=== PATIENT | female | born 1965 | race Caucasian/White ===

== ENCOUNTER 2021-12-10 19:28 | Emergency (ER) | payer MEDICARE ==
[2021-12-10] MEDS ORDERED: DUONEB 0.5-3 MG/3 ml Neb IH ONE ×2 (19:36→19:55)
[2021-12-10] MEDS ORDERED: Sodium Chloride 0.9% 1000 ML 1,000 ML ONE ×3 (19:38→22:53)
[2021-12-10] MEDS ORDERED: Sodium Chloride 0.9% 1000 ML 1,000 ML IV STA (19:42)
[2021-12-10] MEDS ORDERED: PROTONIX 40 MG IV IV ONE ×3 (19:42→20:32)
[2021-12-10] MEDS ORDERED: POTASSIUM CHLORIDE 20 mEq IN WATER 100ML 20 MEQ/100 ML BAG IV SCH (19:45)
[2021-12-10] MEDS ORDERED: PIPERACILLIN/TAZOBACTAM 3.375 GM in Sodium Chloride 100ML MINI-BAG PLUS 100 ML IV ONE (19:48)
[2021-12-10] MEDS ORDERED: Magnesium 1 Gm / 100 Ml D5W*** 100 ML IV ONE ×4 (19:49→21:26)
[2021-12-10] MEDS ORDERED: POTASSIUM CHLORIDE 20 mEq IN WATER 100ML 200 ML IV ONE (19:53)
[2021-12-10] MEDS ORDERED: Sodium Chloride 100ML MINI-BAG PLUS 100 ML IV ONE (19:53)
[2021-12-10] MEDS ORDERED: PIPERACILLIN/TAZOBACTAM IV ONE (19:53)
[2021-12-10] MEDS ORDERED: PROTONIX 40 MG IV*** 80 MG in Sodium Chloride 0.9% 500 ML 500 ML IV SCH (20:00)
[2021-12-10 20:02] LABS: A-aADO2 609; ABG HEMOGLOBIN 16.5; ABG POTASSIUM 2.1 (3.5-5.1); ABG SITE RIGHT BRACHIAL; ARTERIAL BLD GAS O2 SATURATION 90.2 % (95-100); ARTERIAL BLOOD GAS BASE EXCESS -3.5 (-2.0-2.0); ARTERIAL BLOOD GAS FIO2 100 %; ARTERIAL BLOOD GAS PCO2 38 mmHg (35-45); ARTERIAL BLOOD GAS PO2 57 mmHg (75-100); ARTERIAL BLOOD GAS pH 7.36 (7.35-7.45); CARBOXYHEMOGLOBIN 2.3 % THgb (0.0-6.9); HCO3- 21.5 (22-28); HGB O2 SAT 87.2 g/dF (94-100); Methhemoglobin 1.1 % (1.4-1.5)
[2021-12-10 20:03] LABS: ALLEN TEST OK? YES
[2021-12-10 20:07] LABS: Hemoglobin 15.6 g/dL (12.0-16.0); Mean Cell Volume 90.9 fL (78-100); Mean Corpuscular Hemoglobin 28.9 pg (26-32); Mean Corpuscular Hgb Concent. 31.8 g/dL (32-36); Mean Platelet Volume 11.3 fL (7.5-11.0); Platelet Count 236 x10^3/uL (150-450); Red Blood Count 5.39 x10^6/uL (4.1-5.4); Red Cell Distribution Width 13.9 % (11.5-14.0); White Blood Count 24.9 x10^3/uL (4.0-10.5)
--- NOTE | 2021-12-10 20:20 | ERPHSYRPT ---
- History of Present Illness Time Seen by Provider: 12/10/21 19:42 Source: patient, EMS Exam Limitations: clinical condition Patient Subjective Stated Complaint: per ems, pt was unresponsive in bed. o2 upon arrival of rescue was 77 and pt color was dusky. o2 applied and color improved. ems had difficulty getting accurate pulse ox on fingers. pt had coffee ground emesis upon palpation of abd with ems, c/o rt side abd pain and tenderness. last known normal 1000 today. Triage Nursing Assessment: pt wakes to voice. answers some questions. some co nfusion noted. respirations nonlabored, shallow. o2 on per nrb 100%. skin cool, dry, pale. heart rate 108 sinus tach on monitor. Physician History: 56 years old female with history of pulmonary embolism on Eliquis/green filter placement, tobacco abuse, morbid obesity presented in the ER by EMS with chief complaint of altered mental status. As per report patient was found unresponsive at home and on EMS arrival oxygen saturation was in 70s, was placed on nonrebreather and her saturation improved and she is more responsive to verbal stimuli but still sleepy. Patient is complaining of left-sided abdominal pain and had coffee-ground emesis witnessed by EMS prior to arrival. She denies any chest pain but does have some tightness. Denies any fall or trauma. Moving all 4 extremities. Not a good historian and history is limited Timing/Duration: today Severity: moderate, severe Associated Symptoms: nausea, vomiting, abdominal pain, shortness of breath, weakness Allergies/Adverse Reactions: clarithromycin [From Biaxin] Allergy (Intermediate, Verified 12/10/21 20:26) Sulfa (Sulfonamide Antibiotics) Allergy (Intermediate, Verified 12/10/21 20:26) acetaminophen [From Esgic] Allergy (Mild, Verified 12/10/21 21:31) butalbital [From Esgic] Allergy (Mild, Verified 12/10/21 21:31) caffeine [From Esgic] Allergy (Mild, Verified 12/10/21 21:31) ofloxacin [From Floxin] Allergy (Unknown, Verified 12/10/21 21:30) Immunizations Up to Date: ([place]) Travel Risk - International Travel Have you traveled outside of the country in past 3 weeks: No - Coronavirus Screening Are you exhibiting any of the following symptoms?: No - Vaccine Status Have you recieved a Covid-19 vaccination: No Furniture Builder: Unknown - Vaccination Dates Dates if Unknown: [place] - Review of Systems All Other Systems: Unable due to condition - Past Medical History Cardiac History: Coronary Artery Disease, Myocardial Infarction ([place]) Respiratory History: COPD, Pulmonary Embolism - Past Surgical History Other Surgical History: unknown - Social History Smoking Status: Current every day smoker How long have you smoked: yrs Patient Lives Alone: No - Nursing Vital Signs Nursing Vital Signs: Initial Vital Signs Temperature 98.0 F 12/10/21 19:34 Pulse Rate 107 H 12/10/21 19:34 Respiratory Rate 24 12/10/21 19:34 Blood Pressure 92/65 12/10/21 19:34 O2 Sat by Pulse Oximetry 84 L 12/10/21 19:34 Pain Scale Pain Intensity 5 - Physical Exam General Appearance: moderate distress Eye Exam: PERRL/EOMI Ears, Nose, Throat Exam: normal ENT inspection, TMs normal Neck Exam: normal inspection, non-tender, supple, full range of motion Respiratory Exam: diminished breath sounds, accessory muscle use, crackles/rales Cardiovascular Exam: normal heart sounds, tachycardia Gastrointestinal/Abdomen Exam: soft, normal bowel sounds, tenderness (left lower quadrant) Extremity Exam: normal inspection, normal range of motion Neurologic Exam: alert, oriented x 3, cooperative, mandolin repairer II-XII nml as tested, sensation nml, No motor deficits Skin Exam: normal color SpO2 Interpretation: hypoxic, O2 applied SpO2: 83 O2 Delivery: Non-rebreather Procedures - Central Line Time Of Procedure: 20:21 Timeout: Performed Central Line Lumen: triple Lumen Size: 7 [place] Central Line Procedure: chlorahexadine prep Central Line Postion: internal jugular (R) Anesthesia: 1% Lidocaine cc's of anesthesia: 3 Ultrasound Guided Placement: Yes Complications: none Central Line Post Position: sutured, good blood return, position confirmed w/ CXR - Course EKG Interpreted by Me: RATE (106), Sinus Tach, NORMAL AXIS, Other (PVCs, lateral ST depression, prolonged QT interval) Rhythm Strip: Rate (Second EKG time 2229. Rate 90, rhythm sinus. APC, prolonged QT interval. Nonspecific ST changes.) Ordered Tests: Active Orders 24 hr Category Date Time Status EKG-ER Only STAT Care 12/10/21 19:42 Active IV Insertion STAT Care 12/10/21 19:42 Active NPO (ED) STAT Care 12/10/21 19:42 Active Telemetry q4h Care 12/10/21 19:43 Active ABDOMEN AND PELVIS W/0 CONTRAS [CT] Stat Exams 12/10/21 19:42 Taken CHEST 1 VIEW (PORTABLE) Stat Exams 12/10/21 20:24 Taken CHEST WITHOUT CONTRAST [CT] Stat Exams 12/10/21 19:44 Taken HEAD WITHOUT CONTRAST [CT] Stat Exams 12/10/21 21:15 Taken ABG [ARTERIAL BLOOD GASES] Stat Lab 12/10/21 19:30 Completed AMYLASE Stat Lab 12/10/21 20:02 Completed BLOOD CULTURE Stat Lab 12/10/21 22:58 Received BNP [NT PRO BNP] Stat Lab 12/10/21 20:04 Completed CBC W DIFF Stat Lab 12/10/21 20:02 Completed CMP Stat Lab 12/10/21 20:02 Completed LIPASE Stat Lab 12/10/21 20:02 Completed Lactic Acid Stat Lab 12/10/21 19:30 Completed Lactic Acid Stat Lab 12/10/21 22:04 Received MAG [MAGNESIUM] Stat Lab 12/10/21 20:04 Completed Manual Differential NC Stat Lab 12/10/21 20:02 Completed PROCALCITONIN Stat Lab 12/10/21 20:02 Completed TROPONIN Q4H Lab 12/10/21 20:02 Completed TROPONIN Q4H Lab 12/10/21 23:45 Ordered TROPONIN Q4H Lab 12/11/21 03:45 Ordered UA W/RFX CULTURE Stat Lab 12/10/21 20:46 Completed Urine Triage Profile Stat Lab 12/10/21 20:44 Completed Respiratory Therapy Assessment DAILY RT 12/10/21 19:56 Active Medication Summary Generic Name Dose Route Start Last Admin Trade Name Freq PRN Reason Stop Dose Admin Potassium Chloride 20 meq in 100 mls @ 50 mls/hr 12/10/21 19:45 12/10/21 20:26 Potassium Chloride 20 Meq In Water 100ml IV 12/10/21 23:44 50 mls/hr Q2H ITZ Administration Pantoprazole Sodium 80 mg/ 500 mls @ 50 mls/hr 12/10/21 20:00 12/10/21 20:33 Sodium Chloride IV 01/09/22 19:59 50 mls/hr .Q10H ITZ 50 mls/hr Administration Discontinued Medications Generic Name Dose Route Start Last Admin Trade Name Freq PRN Reason Stop Dose Admin Albuterol/Ipratropium Confirm 12/10/21 19:36 Ipratropium/Albuterol Sulfate 3 Ml Ampul.Neb Administered 12/10/21 19:37 Dose 3 ml IH .STK-MED ONE Albuterol/Ipratropium 3 ml 12/10/21 19:55 12/10/21 19:57 Ipratropium/Albuterol Sulfate 3 Ml Ampul.Neb IH 12/10/21 19:56 3 ml STAT ONE Administration Methylprednisolone Sodium 0 mg 12/10/21 20:35 12/10/21 20:38 Succinate 125 mg/ Sterile IV 12/10/21 20:36 125 mg Water 2 ml STAT ONE Administration Sodium Chloride Confirm 12/10/21 19:38 Sodium Chloride 0.9% 1000 Ml Administered 12/10/21 19:39 Dose 1,000 mls @ ud .ROUTE .STK-MED ONE Sodium Chloride 1,000 mls @ 999 mls/hr 12/10/21 19:42 12/10/21 21:38 Sodium Chloride 0.9% 1000 Ml IV 12/10/21 20:42 Infused .Q1H1M STA Infusion Piperacillin Sod/Tazobactam 100 mls @ 200 mls/hr 12/10/21 19:48 12/10/21 20: 26 Sod 3.375 gm/ Sodium Chloride IV 12/10/21 20:17 200 mls/hr STAT ONE Administration Magnesium Sulfate/Dextrose 100 mls @ 200 mls/hr 12/10/21 19:49 12/10/21 20:27 Magnesium 1 Gm / 100 Ml D5w IV 12/10/21 20:18 200 mls/hr STAT ONE Administration Sodium Chloride Confirm 12/10/21 19:53 Sodium Chloride 100ml Mini-Bag Plus Administered 12/10/21 19:54 Dose 100 mls @ ud IV .STK-MED ONE Magnesium Sulfate/Dextrose Confirm 12/10/21 19:53 Magnesium 1 Gm / 100 Ml D5w Administered 12/10/21 19:54 Dose 100 mls @ ud IV .STK-MED ONE Sodium Chloride Confirm 12/10/21 19:53 Sodium Chloride 0.9% 1000 Ml Administered 12/10/21 19:54 Dose 1,000 mls @ ud .ROUTE .STK-MED ONE Levofloxacin/Dextrose 500 mg in 100 mls @ 100 mls/hr 12/10/21 20:34 12/10/21 21:41 Levofloxacin 500mg/100ml D5w IV 12/10/21 21:33 Not Given STAT STA Sodium Chloride Confirm 12/10/21 20:32 Sodium Chloride 0.9% 500 Ml Administered 12/10/21 20:33 Dose 500 mls @ ud IV .STK-MED ONE Magnesium Sulfate/Dextrose 100 mls @ 200 mls/hr 12/10/21 20:55 12/10/21 21:27 Magnesium 1 Gm / 100 Ml D5w IV 12/10/21 21:24 200 mls/hr STAT ONE Administration Magnesium Sulfate/Dextrose Confirm 12/10/21 21:26 Magnesium 1 Gm / 100 Ml D5w Administered 12/10/21 21:27 Dose 100 mls @ ud IV .STK-MED ONE Vancomycin HCl 1 gm in 200 mls @ 125 mls/hr 12/10/21 21:33 12/10/21 21:44 Vancomycin 1 Gram/200 Ml Bag IV 12/10/21 23:08 125 ml/hr STAT ONE 125 mls/hr Administration Vancomycin HCl Confirm 12/10/21 21:43 Vancomycin 1 Gram/200 Ml Bag Administered 12/10/21 21:44 Dose 1 gm in 200 mls @ ud IV .STK-MED ONE Sodium Chloride Confirm 12/10/21 22:53 Sodium Chloride 0.9% 1000 Ml Administered 12/10/21 22:54 Dose 1,000 mls @ ud .ROUTE .STK-MED ONE Methylprednisolone Sodium Succinate Confirm 12/10/21 20:30 Methylprednis Sod Succ 125 Mg/2 Ml Vial Administered 12/10/21 20:31 Dose 125 mg .ROUTE .STK-MED ONE Pantoprazole Sodium 40 mg 12/10/21 19:42 12/10/21 20:27 Pantoprazole 40 Mg Vial IV 12/10/21 19:43 40 mg STAT ONE Administration Pantoprazole Sodium Confirm 12/10/21 19:53 Pantoprazole 40 Mg Vial Administered 12/10/21 19:54 Dose 40 mg IV .STK-MED ONE Pantoprazole Sodium Confirm 12/10/21 20:32 Pantoprazole 40 Mg Vial Administered 12/10/21 20:33 Dose 80 mg IV .STK-MED ONE Piperacillin Sod/Tazobactam Sod Confirm 12/10/21 19:53 Piperacillin/Tazobactam Sodium 3.375 Gm Vial Administered 12/10/21 19:54 Dose 3.375 gm IV .STK-MED ONE Sterile Water Confirm 12/10/21 20:30 Water For Injection,Sterile 10 Ml Vial Administered 12/10/21 20:31 Dose 10 ml IJ .STK-MED ONE Lab/Rad Data: Laboratory Result Diagrams 12/10/21 20:02 12/10/21 20:02 Laboratory Results 12/10/21 12/10/21 12/10/21 Range/Units 20:46 20:44 20:04 WBC (4.0-10.5) x10^3/uL RBC (4.1-5.4) x10^6/uL Hgb (12.0-16.0) g/dL Hct (35-47) % MCV (78-100) fL MCH (26-32) pg MCHC (32-36) g/dL RDW (11.5-14.0) % Plt Count (150-450) x10^3/uL MPV (7.5-11.0) fL Segmented Neutrophils (36.0-66.0) % Band Neutrophils (0.0-2.0) % Lymphocytes (Manual) (24-44) % Monocytes (Manual) (0.0-12.0) % Platelet Estimate (NORMAL) RBC Morphology Puncture Site pCO2 (35-45) mmHg pO2 (75-100) mmHg Base Excess (-2.0-2.0) O2 Saturation (94-100) g/dF ABG pH (7.35-7.45) ABG HCO3 (22-28) ABG O2 Sat (Measured) (95-100) % [place] Test A-a Gradient a/A Ratio Hemoglobin Carboxyhemoglobin (0.0-6.9) % THgb Methemoglobin (1.4-1.5) % Potassium (3.5-5.1) Temperature C POC O2 Flow Rate % Sodium (137-145) mmol/L Chloride (98-107) mmol/L Carbon Dioxide (22-30) mmol/L Anion Gap (5-15) MEQ/L BUN (7-17) mg/dL Creatinine (0.52-1.04) mg/dL Estimated GFR ML/MIN Glucose (74-106) mg/dL Lactic Acid (0.4-2.0) Calcium (8.4-10.2) mg/dL Magnesium 1.0 L* (1.6-2.3) mg/dL Total Bilirubin (0.2-1.3) mg/dL AST (14-36) U/L ALT (0-35) U/L Alkaline Phosphatase (38-126) U/L Troponin I (0.000-0.034) ng/mL NT-Pro-B Natriuret Pep 6790 H (0-900) pg/mL Serum Total Protein (6.3-8.2) g/dL Albumin (3.5-5.0) g/dL Amylase (30-110) U/L Lipase (23-300) U/L Procalcitonin (0.030-0.080) ng/mL Urinalys Dipstick Clnc MAIN LAB Urine Color YELLOW (YELLOW) Urine Appearance CLEAR (CLEAR) Urine pH 6.5 (5-6) Ur Specific [place] 1.020 (1.005-1.025) POC Urine Protein Conf NEGATIVE (Negative) Urine Ketones NEGATIVE (NEGATIVE) Urine Nitrite NEGATIVE (NEGATIVE) Urine Bilirubin NEGATIVE (NEGATIVE) Urine Urobilinogen 0.2 (0-1) mg/dL Urine Leukocytes NEGATIVE (NEGATIVE) Urine WBC (Auto) 0-2 (0-5) /HPF Urine RBC (Auto) 0-2 (0-2) /HPF U Epithel Cells (Auto) RARE (FEW) /HPF Urine Bacteria (Auto) NONE SEEN (NEGATIVE) /HPF Urine RBC NEGATIVE (0-5) Carlos/ul Ur Culture Indicated? NO Urine Glucose 250 A (NEGATIVE) mg/dL Urine Opiates Level NEGATIVE (NEGATIVE) Ur Methadone NEGATIVE (NEGATIVE) Urine Barbiturates NEGATIVE (NEGATIVE) Ur Phencyclidine (PCP) NEGATIVE (NEGATIVE) Urine Amphetamine NEGATIVE (NEGATIVE) U Benzodiazepine Level POSITIVE (NEGATIVE) Urine Cocaine NEGATIVE (NEGATIVE) Urine Marijuana (THC) NEGATIVE (NEGATIVE) 12/10/21 12/10/21 12/10/21 Range/Units 20:02 20:02 20:02 WBC (4.0-10.5) x10^3/uL RBC (4.1-5.4) x10^6/uL Hgb (12.0-16.0) g/dL Hct (35-47) % MCV (78-100) fL MCH (26-32) pg MCHC (32-36) g/dL RDW (11.5-14.0) % Plt Count (150-450) x10^3/uL MPV (7.5-11.0) fL Segmented Neutrophils (36.0-66.0) % Band Neutrophils (0.0-2.0) % Lymphocytes (Manual) (24-44) % Monocytes (Manual) (0.0-12.0) % Platelet Estimate (NORMAL) RBC Morphology Puncture Site pCO2 (35-45) mmHg pO2 (75-100) mmHg Base Excess (-2.0-2.0) O2 Saturation (94-100) g/dF ABG pH (7.35-7.45) ABG HCO3 (22-28) ABG O2 Sat (Measured) (95-100) % [place] Test A-a Gradient a/A Ratio Hemoglobin Carboxyhemoglobin (0.0-6.9) % THgb Methemoglobin (1.4-1.5) % Potassium 2.1 L* (3.5-5.1) Temperature C POC O2 Flow Rate % Sodium 138 (137-145) mmol/L Chloride 101 (98-107) mmol/L Carbon Dioxide 20 L (22-30) mmol/L Anion Gap 19.1 H (5-15) MEQ/L BUN 15 (7-17) mg/dL Creatinine 2.11 H (0.52-1.04) mg/dL Estimated GFR 25.9 ML/MIN Glucose 119 H (74-106) mg/dL Lactic Acid (0.4-2.0) Calcium 9.3 (8.4-10.2) mg/dL Magnesium (1.6-2.3) mg/dL Total Bilirubin 0.80 (0.2-1.3) mg/dL AST 49 H (14-36) U/L ALT 33 (0-35) U/L Alkaline Phosphatase 84 (38-126) U/L Troponin I 1.860 H* (0.000-0.034) ng/mL NT-Pro-B Natriuret Pep (0-900) pg/mL Serum Total Protein 6.2 L (6.3-8.2) g/dL Albumin 3.7 (3.5-5.0) g/dL Amylase 54 (30-110) U/L Lipase 42 (23-300) U/L Procalcitonin 50.900 H* (0.030-0.080) ng/mL Urinalys Dipstick Clnc Urine Color (YELLOW) Urine Appearance (CLEAR) Urine pH (5-6) Ur Specific [place] (1.005-1.025) POC Urine Protein Conf (Negative) Urine Ketones (NEGATIVE) Urine Nitrite (NEGATIVE) Urine Bilirubin (NEGATIVE) Urine Urobilinogen (0-1) mg/dL Urine Leukocytes (NEGATIVE) Urine WBC (Auto) (0-5) /HPF Urine RBC (Auto) (0-2) /HPF U Epithel Cells (Auto) (FEW) /HPF Urine Bacteria (Auto) (NEGATIVE) /HPF Urine RBC (0-5) Carlos/ul Ur Culture Indicated? Urine Glucose (NEGATIVE) mg/dL Urine Opiates Level (NEGATIVE) Ur Methadone (NEGATIVE) Urine Barbiturates (NEGATIVE) Ur Phencyclidine (PCP) (NEGATIVE) Urine Amphetamine (NEGATIVE) U Benzodiazepine Level (NEGATIVE) Urine Cocaine (NEGATIVE) Urine Marijuana (THC) (NEGATIVE) 12/10/21 12/10/21 12/10/21 Range/Units 20:02 19:30 19:30 WBC 24.9 H (4.0-10.5) x10^3/uL RBC 5.39 (4.1-5.4) x10^6/uL Hgb 15.6 (12.0-16.0) g/dL Hct 49.0 H (35-47) % MCV 90.9 (78-100) fL MCH 28.9 (26-32) pg MCHC 31.8 L (32-36) g/dL RDW 13.9 (11.5-14.0) % Plt Count 236 (150-450) x10^3/uL MPV 11.3 H (7.5-11.0) fL Segmented Neutrophils 56 (36.0-66.0) % Band Neutrophils 22 H (0.0-2.0) % Lymphocytes (Manual) 10 L (24-44) % Monocytes (Manual) 12 (0.0-12.0) % Platelet Estimate NORMAL (NORMAL) RBC Morphology NORMAL Puncture Site RIGHT BRACHIAL pCO2 38 (35-45) mmHg pO2 57 L (75-100) mmHg Base Excess -3.5 L (-2.0-2.0) O2 Saturation 87.2 L (94-100) g/dF ABG pH 7.36 (7.35-7.45) ABG HCO3 21.5 L (22-28) ABG O2 Sat (Measured) 90.2 L (95-100) % Kentrell Test YES A-a Gradient 609 a/A Ratio 0.09 Hemoglobin 16.5 Carboxyhemoglobin 2.3 (0.0-6.9) % THgb Methemoglobin 1.1 L (1.4-1.5) % Potassium 2.1 L* (3.5-5.1) Temperature 37.0 C POC O2 Flow Rate 100 % Sodium (137-145) mmol/L Chloride (98-107) mmol/L Carbon Dioxide (22-30) mmol/L Anion Gap (5-15) MEQ/L BUN (7-17) mg/dL Creatinine (0.52-1.04) mg/dL Estimated GFR ML/MIN Glucose (74-106) mg/dL Lactic Acid 6.8 H (0.4-2.0) Calcium (8.4-10.2) mg/dL Magnesium (1.6-2.3) mg/dL Total Bilirubin (0.2-1.3) mg/dL AST (14-36) U/L ALT (0-35) U/L Alkaline Phosphatase (38-126) U/L Troponin I (0.000-0.034) ng/mL NT-Pro-B Natriuret Pep (0-900) pg/mL Serum Total Protein (6.3-8.2) g/dL Albumin (3.5-5.0) g/dL Amylase (30-110) U/L Lipase (23-300) U/L Procalcitonin (0.030-0.080) ng/mL Urinalys Dipstick Clnc Urine Color (YELLOW) Urine Appearance (CLEAR) Urine pH (5-6) Ur Specific [place] (1.005-1.025) POC Urine Protein Conf (Negative) Urine Ketones (NEGATIVE) Urine Nitrite (NEGATIVE) Urine Bilirubin (NEGATIVE) Urine Urobilinogen (0-1) mg/dL Urine Leukocytes (NEGATIVE) Urine WBC (Auto) (0-5) /HPF Urine RBC (Auto) (0-2) /HPF U Epithel Cells (Auto) (FEW) /HPF Urine Bacteria (Auto) (NEGATIVE) /HPF Urine RBC (0-5) Carlos/ul Ur Culture Indicated? Urine Glucose (NEGATIVE) mg/dL Urine Opiates Level (NEGATIVE) Ur Methadone (NEGATIVE) Urine Barbiturates (NEGATIVE) Ur Phencyclidine (PCP) (NEGATIVE) Urine Amphetamine (NEGATIVE) U Benzodiazepine Level (NEGATIVE) Urine Cocaine (NEGATIVE) Urine Marijuana (THC) (NEGATIVE) - Progress Progress: improved Progress Note: 12/10/21 22:43 56-year-old is evaluated for lethargy/unresponsiveness, hypoxic, placed on nonrebreather. Given breathing treatment and is short of steroid, patient is sleepy but arousable to verbal commands and moving all 4 extremities. Chest x- ray showed bilateral pneumonia and given broad-spectrum antibiotics Zosyn and vancomycin. Patient was hypotensive and getting fluid per sepsis protocol and currently blood pressure in upper 90s. Patient has a white count of 25, lactate of 6.8 with procalcitonin of 50 and acute renal failure with a creatinine of 2.1. EKG did not show any acute ST elevation but has a troponin of 1.8 and patient denies any chest pain. Patient has a potassium of 2.1 and magnesium of 1.12. Started on replacement of potassium and magnesium. Patient is taken off of nonrebreather and placed on 6 L which she did not tolerate very well and currently on Venturi mask 12 L. I have obtained CT head which is negative. CT chest showed bilateral consolidation/pneumonia and CT abdomen pelvis showed some gastric distention with some element of constipation but no other definite obstruction. Patient had a coffee-ground emesis and given Protonix and started on Protonix drip. Discussed with Dr. Serrano at [facility], reviewed history, work-up and patient is excepted for transfer. Discussed with Dr.: Other (Dr. Serrano [facility]) Counseled pt/family regarding: lab results, diagnosis, rad results, smoking cessation - Departure Departure Disposition: Transfer Clinical Impression: Bilateral pneumonia, Sepsis, Acute renal failure, GI bleed, Elevated troponin, Hypomagnesemia, Hypokalemia Respiratory failure Qualifiers: Chronicity: acute Respiratory failure complication: hypoxia Qualified Code(s): J96.01 - Acute respiratory failure with hypoxia Condition: Critical Critical Care Time: Yes Critical Care Time(excluding separately billable procedures): Critical 75-104 mins Referrals: ARMAND CORTEZ [Primary Care Provider] - Follow up/PCP as directed
[2021-12-10 20:22] LABS: ALBUMIN 3.7 g/dL (3.5-5.0); ANION GAP 19.1 MEQ/L (5-15); BILIRUBIN,TOTAL 0.8 mg/dL (0.2-1.3); Calcium 9.3 mg/dL (8.4-10.2); Creatinine 1 2.11 mg/dL (0.52-1.04); EST GLOMERULAR FILTRATION RATE 25.9 ML/MIN; Total Protein 6.2 g/dL (6.3-8.2)
[2021-12-10] MEDS ORDERED: Sterile H2O 10 ml IJ ONE (20:30)
[2021-12-10] MEDS ORDERED: solu-MEDROL ONE (20:30)
[2021-12-10] MEDS ORDERED: Sodium Chloride 0.9% 500 ML 500 ML IV ONE (20:32)
[2021-12-10 20:33] LABS: Potassium 2.1 mmol/L (3.5-5.1)
[2021-12-10] MEDS ORDERED: Levofloxacin 500MG/100ML D5W 500 MG/100 ML BAG IV STA (20:34)
[2021-12-10] MEDS ORDERED: solu-MEDROL 125 MG, Sterile H2O 10 ml 2 ML IV ONE ×2 (20:35)
[2021-12-10 20:55] LABS: BAND 22 % (0.0-2.0); Lymphocytes 10 % (24-44); Monocyte 12 % (0.0-12.0); Total Cells Counted 100
[2021-12-10 20:56] LABS: Platelet Estimate NORMAL (NORMAL)
[2021-12-10 21:07] LABS: Appearance CLEAR (CLEAR); Bilirubin NEGATIVE (NEGATIVE); Dipstick done @ ? MAIN LAB; Glucose 250 mg/dL (NEGATIVE); Ketones NEGATIVE (NEGATIVE); Nitrite NEGATIVE (NEGATIVE); Ph 6.5 (5-6); Protein,Urine Dip NEGATIVE (Negative); RBC NEGATIVE Ery/ul (0-5); Urobilinogen 0.2 mg/dL (0-1)
[2021-12-10 21:19] LABS: Bacteria NONE SEEN /HPF (NEGATIVE); Epithelial Cells RARE /HPF (FEW); RBC 0-2 /HPF (0-2); WBC 0-2 /HPF (0-5)
[2021-12-10 21:20] LABS: Urine Cultured Indicated? NO
[2021-12-10 21:23] LABS: Amphetamine,Urine NEGATIVE (NEGATIVE); Barbiturate,Urine NEGATIVE (NEGATIVE); Benzodiazepine,Urine POSITIVE (NEGATIVE); Cocaine,Urine NEGATIVE (NEGATIVE); Methadone,Urine NEGATIVE (NEGATIVE); Opiate,Urine NEGATIVE (NEGATIVE); PCP,Urine NEGATIVE (NEGATIVE); THC,Urine NEGATIVE (NEGATIVE)
[2021-12-10] MEDS ORDERED: VANCOMYCIN 1 GRAM/200 ML BAG 1 GM/200 ML PIGGYBACK IV ONE ×2 (21:33→21:43)
[2021-12-10 22:51] VITALS: PULSE 92
[2021-12-10 23:09] VITALS: BP 109/44
[2021-12-10 23:11] VITALS: O2SAT 83
--- NOTE | 2021-12-11 14:44 | XRAY ---
Indication: Unresponsive. Headache, left abdomen pain, and constipation. Multiple contiguous axial images obtained through the abdomen and pelvis without contrast. Comparison: March 13, 2009 CT chest reported separately. Stomach is now moderately fluid distended either from recent ingestion versus gastroparesis versus outlet obstruction. Noncontrasted bowel loops appear nonobstructed. There is now moderate diffuse scattered colonic fecal debris including rectum. Dense radiopacities in the left hemicolon and sigmoid may represent ingested medication/bismuth versus barium. Urinary bladder is empty with a Stovall balloon catheter. Again diffuse fatty liver and diffuse fatty replaced pancreas. New 1.3 cm right lower and 1.4 cm left mid renal cysts. Appendectomy, cholecystomy, and hysterectomy reported. No free fluid/air. Remaining liver, gallbladder, pancreas, spleen, adrenal glands, kidneys, and ureters are unremarkable for noncontrast exam. Worsening mild/moderate scattered aortoiliac calcifications without AAA. Stable femoral-femoral bypass graft and IVC filter. Osseous structures intact with minimal/mild degenerative changes throughout the thoracolumbar spine. No ventral or inguinal hernias. Impression: 1. New fluid distended stomach either from recent ingestion, gastroparesis, or outlet obstruction. 2. New moderate diffuse fecal stasis. 3. New bilateral renal cysts. 4. Again fatty liver, fatty replaced pancreas, arteriosclerotic disease, and chronic bony findings.
--- NOTE | 2021-12-11 14:45 | XRAY ---
Indication: Unresponsive. Headache, left abdomen pain, and constipation. Multiple contiguous axial images obtained through the head without contrast. Comparison: December 29, 2006 Normal appearing brain parenchyma, ventricles, and bony calvarium. Visualized paranasal sinuses and mastoid air cells are clear. Impression: Continued normal CT head without contrast exam.
--- NOTE | 2021-12-11 14:45 | XRAY ---
Indication: Unresponsive. Headache, left abdomen pain, and constipation. Multiple contiguous axial images obtained through the chest without contrast. Comparison: July 09, 2006 Lungs demonstrate new diffuse right lung and left lower lobe consolidating airspace disease. Greatest extent in both posterior lower lobes concerning for aspiration. Interval peripheral left upper lobe postsurgical changes. No pneumothorax. Heart not enlarged with new right central venous access catheter. Aorta is mildly arteriosclerotic without aneurysm. Mild fluid distended mid esophagus favoring GERD. Bony thorax intact with minimal degenerative changes throughout the spine. CT abdomen/pelvis report septally. Impression: New diffuse right lung and left lower lobe consolidating airspace disease. Rule out aspiration. Incidental mild fluid distended esophagus favors GERD.
--- NOTE | 2021-12-11 14:45 | XRAY ---
Indication: Central line placement. Comparison: March 13, 2009 Portable chest again demonstrates right internal jugular central venous access catheter with tip projecting over atriocaval junction. No pneumothorax. Lungs less inflated with new diffuse bilateral infiltrates versus atelectasis without consolidation/large effusion. Stable left midlung postsurgical changes. Heart is not enlarged. Bony thorax intact again with mild osteopenia and degenerative changes.
== END 2021-12-10 23:15 | disposition short-term general hospital (02) ==
LOC: MERGE 19:28 → ED 19:28
DX: A41.9 Sepsis, unspecified organism (principal); J18.9 Pneumonia, unspecified organism; R65.20 Severe sepsis without septic shock; N17.9 Acute kidney failure, unspecified; J96.01 Acute respiratory failure with hypoxia; Z72.0 Tobacco use; K92.2 Gastrointestinal hemorrhage, unspecified; R77.8 Other specified abnormalities of plasma proteins; E83.42 Hypomagnesemia; E87.6 Hypokalemia; R41.82 Altered mental status, unspecified; R10.9 Unspecified abdominal pain; R11.2 Nausea with vomiting, unspecified; J44.9 Chronic obstructive pulmonary disease, unspecified
CPT/HCPCS: 36000; 36415; 36556; 36600; 70450; 71045; 71250; 74176; 80053; 80307; 81015; 82150; 82375; 82803; 83605; 83690; 83735; 83880; 84145; 84484; 85025; 87040; 93005; 94640; 96360; 96365; 96366; 96367; 96374; 96375; 99285; 99291; 99292; J2930; J3475; J3480; A9270-GY; J3370